=== PATIENT | male | born 1975 | race Caucasian/White ===

== ENCOUNTER 2016-09-28 10:53 | Emergency (ER) | payer OTHER, BC ==
[~2016-09-28] VITALS: Ht 165.1 cm; Wt 60.0 kg
[2016-09-28 10:54] VITALS: BP 115/75; PULSE 83; RESP 19; O2SAT 98
[2016-09-28] MEDS ORDERED: CLIN1CAP5 PO (11:15)
[2016-09-28] MEDS ORDERED: LIDOCAINE HCL 1% 50 ML VIAL INFIL ONE (11:15)
[2016-09-28] MEDS ORDERED: BUPIVACAINE HCL PF 0.5% 10 ML VIAL INFIL ONE (11:15)
[2016-09-28] MEDS ORDERED: IBUP800T23 PO (11:15)
[2016-09-28] MEDS ORDERED: IBUPROFEN 800 MG TAB PO ONE (11:15)
[2016-09-28] MEDS ORDERED: HYDR-3533 PO (11:17)
--- NOTE | 2016-09-28 11:17 | PD ---
HPI Chief Complaint: Laceration/Skin Injury Time Seen by Provider: 11:13 Travel History International Travel<30 days: No Contact w/Intl Traveler<30days: No Traveled to known affect area: No History of Present Illness HPI 41-year-old male presents to the emergency Department with complaint of a laceration to the distal aspect of his left thumb from a hack saw today. Reports being up-to-date on his tetanus vaccination. Denies paresthesias, loss of sensation, decreased range of motion, decreased strength to the affected finger. Denies fever, vomiting. Has not taken any medications to alleviate his symptoms. Has applied pressure to it and a bandage to control bleeding. Has no other medical complaints. Symptoms are mild in severity. No other modifying factors or associated signs and symptoms. PFSH Social History Tobacco Use: No Allergies-Medications (Allergen,Severity, Reaction): Coded Allergies: Penicillins (Verified Allergy, Severe, Rash, 09/28/16) Reported Meds & Prescriptions Reported Meds & Active Scripts Active Lortab (Hydrocodone-Acetaminophen) 5-325 Mg Tab 1-2 Tab PO Q6H PRN Clindamycin (Clindamycin HCl) 150 Mg Cap 300 Mg PO Q8HR 7 Days Ibuprofen 800 Mg Tab 800 Mg PO Q6HR PRN Review of Systems Except as stated in HPI: all other systems reviewed are Neg Physical Exam Narrative GENERAL: Well-nourished, well-developed male patient, in no acute distress SKIN: Warm and dry. Approximately 1.5 cm laceration to the tip of the left thumb involving the nailbed; sensory intact; normal cap refill, thumb with full range of motion at all joints; without erythema, edema; finger with good opposition; bleeding controlled. HEAD: Atraumatic. Normocephalic. EYES: Pupils equal and round. No scleral icterus. No injection or drainage. ENT: Mucosa pink and moist. Airway patent. NECK: Trachea midline. CARDIOVASCULAR: Regular rate. RESPIRATORY: No accessory muscle use. GASTROINTESTINAL: Flat. MUSCULOSKELETAL: No obvious deformities. No clubbing. No cyanosis. No edema. NEUROLOGICAL: Awake and alert. Oriented 3. No obvious cranial nerve deficits. Motor grossly within normal limits. Normal speech. PSYCHIATRIC: Appropriate mood and affect; insight and judgment normal. Data Data Last Documented VS Vital Signs Date Time Temp Pulse Resp B/P Pulse Ox O2 Delivery O2 Flow Rate FiO2 09/28/16 10:54 83 19 115/75 98 Orders Lidocaine 1% Inj (50 Ml) (Xylocaine 1% I (09/28/16 11:15) Finger (Dbd2dis) (09/28/16 ) Ibuprofen (Motrin) (09/28/16 11:15) Bupivacaine Pf 0.5% Inj (Marcaine Pf 0.5 (09/28/16 11:15) MDM Medical Decision Making Medical Screen Exam Complete: Yes Emergency Medical Condition: Yes Medical Record Reviewed: Yes Differential Diagnosis Laceration, contusion, abrasion, fracture Narrative Course 41-year-old male with laceration to the tip of his left thumb involving the nailbed. Tetanus is up-to-date. See my procedure note for laceration repair. Ibuprofen administered in the ER. Left thumb x-ray ordered. 1206: Thumb x-ray concludes no fracture or radiopaque foreign body. Clindamycin, ibuprofen, Lortab prescribed for home. Instructed patient to return to the emergency department or follow-up with primary care provider in 7- 10 days for suture removal. [place] splint provided for home. Instructed patient to follow up with primary care provider. Patient verbalizes understanding and agreement with treatment plan. Patient is medically cleared and stable for discharge. Discussed reasons to return to the emergency department. Patient agrees with treatment plan. The patients vital signs are stable and the patient is stable for outpatient follow-up and treatment. Patient discharged home, stable and in no acute distress. Procedures Procedure Narrative LACERATION LOCATION: Distal aspect of left thumb involving the nailbed LENGTH: 1.5 cm NUMBER OF STITCHES/CLARE: 4 simple interrupted sutures REPAIR: The area of the laceration was prepped with Betadine and sterilely draped. The left thumb was digitally blocked using 1% lidocaine and 0.5% bupivacaine. The wound was copiously irrigated and explored without evidence of foreign body, tendon injury or neurovascular injury. The wound was closed using 4-0 Prolene. This was a single layer repair. A sterile dressing was applied. The patient was advised to keep the dressing clean and dry. Patient tolerated the procedure well. Diagnosis Primary Impression: Laceration of thumb with damage to nail Qualified Code: S61.112A - Laceration of left thumb without foreign body with damage to nail, initial encounter Referrals: Primary Care Physician Patient Instructions: Care For Your Stitches (ED), General Instructions, Laceration (ED) Departure Forms: Tests/Procedures, Work Release Enter return to work date: Oct 02, 2016 Additional Instructions: Keep area clean and dry Limit left thumb activity to decrease risk of sutures coming undone Ibuprofen or Tylenol as directed and as needed for pain and inflammation Ice pack to area as needed to decrease pain Return to the emergency department or follow-up with primary care provider in 7- 10 days for suture removal Follow up with primary care provider within 2-4 days Return to the emergency department immediately with worsening of symptoms, particularly if reddened streaks up or down the affected extremity from the suture site, fever, numbness/tingling in the affected extremity, loss of sensation in the affected extremity, severe swelling of the affected Med/Other Pt SpecificInfo: Prescription(s) given Scripts Hydrocodone-Acetaminophen (Lortab)5-325 Mg Tab1-2 Tab PO Q6H PRN (PAIN) #12 TAB Ref 0 Prov:Rafat Chery MD 09/28/16 Clindamycin 150 Mg Aod196 Mg PO Q8HR 7 Days Ref 0 Prov:Dhara Coleman 09/28/16 Ibuprofen 800 Mg Ltt216 Mg PO Q6HR PRN (PAIN) #30 TAB Ref 0 Prov:Dhara Coleman 09/28/16 Disposition: 01 DISCHARGE HOME Condition: Stable Dhara Coleman Sep 28, 2016 11:16
--- NOTE | 2016-09-28 11:55 | RADRPT ---
EXAM DATE/TIME: 09/28/2016 11:22 [facility] COMPARISON: No previous studies available for comparison. INDICATIONS : Laceration to left thumb from hacksaw. MEDICAL HISTORY : None. SURGICAL HISTORY : None. ENCOUNTER: Initial ACUITY: 1 day PAIN SCORE: 8/10 LOCATION: Left thumb FINDINGS: Examination of the first digit of the left hand demonstrates no evidence of fracture or dislocation. No radiopaque foreign bodies are seen. The soft tissues are intact. CONCLUSION: Negative trauma study with no fracture or radiopaque foreign body. Jeronimo Arango MD on September 28, 2016 at 11:53 Board Certified Radiologist. This report was verified electronically.
== END 2016-09-28 13:15 | disposition home or self-care (01) ==
LOC: NEPK 10:53
DX: S61.012A Laceration without foreign body of left thumb without damage to nail, initial encounter (principal); W27.8XXA Contact with other nonpowered hand tool, initial encounter; Z88.0 Allergy status to penicillin
CPT/HCPCS: 12001; 73140; 99283